=== PATIENT | female | born 2000 | race Hispanic/Latino ===

== ENCOUNTER 2025-03-07 13:04 | Emergency (ER) | payer SELFPAY ==
[~2025-03-07] VITALS: Ht 144.8 cm; Wt 88.1 kg
[~2025-03-07 13:04] MED LIST: AMOXICILLIN875 MG PO; CIPRO HC OTIC S10 ML RIGHT EAR
[2025-03-07 13:09] VITALS: PULSE 113; RESP 18; TEMP 98.5; O2SAT 100
[2025-03-07] MEDS ORDERED: AMOXICILLIN500 MG PO (13:24)
[2025-03-07] MEDS ORDERED: VENTOLIN HFA18 GM INH (13:25)
== END 2025-03-07 13:31 | disposition home or self-care (01) ==
LOC: FSED 13:11
DX: R05.9 Cough, unspecified (principal); J01.90 Acute sinusitis, unspecified; R51.9 Headache, unspecified; E66.9 Obesity, unspecified
CPT/HCPCS: 99284